=== PATIENT | male | born 1990 | race Two or more races ===

== ENCOUNTER 2020-09-20 13:25 | Emergency (ER) | payer MEDICARE, MEDICAID, SELFPAY ==
--- NOTE | 2020-09-20 14:24 | PC.NURSE ---
PT CALLED BY DANIELEAY X 2. NO ANSWER. NOT IN WR
== END 2020-09-20 18:40 | disposition left against medical advice (07) ==
PROVIDERS: Emergency Provider Emergency Medicine
DX: M79.642 Pain in left hand (principal)
CPT/HCPCS: 99281

== ENCOUNTER 2020-12-11 12:46 | Outpatient (REF) | payer MEDICARE, MEDICAID, SELFPAY | END 2020-12-11 12:47 | disposition home or self-care (01) | LOC: HO.LAB 12:46 | PROVIDERS: Visit Provider Internal Medicine | DX: Z20.822 Contact with and (suspected) exposure to COVID-19 (principal) | CPT/HCPCS: C9803; U0003; U0005 ==

== ENCOUNTER 2022-06-28 13:30 | Emergency (ER) | payer MEDICARE, MEDICAID, SELFPAY ==
[2022-06-28 14:46] VITALS: BP 131/63; PULSE 69; RESP 19; TEMP 36.6; O2SAT 98; BMI 32.5
--- NOTE | 2022-06-28 14:47 | ED.DENTAL ---
HPI - Dental/Oral General Chief complaint: Dental/Oral Stated complaint: tooth ache Time Seen by Provider: 06/28/22 14:51 Source: patient Mode of arrival: ambulatory Limitations: no limitations History of Present Illness HPI Narrative: Patient is a 31-year-old male who presents to emergency department for evaluation of right lower dental pain. Onset of symptom was a few months ago, but has become progressively worse over the past 2 days. Reports that his tooth fractured initially, has not been able to see a dentist for this. Reports that his gums are red, denies any purulent drainage. Denies fevers, chills, drooling, difficulty swallowing, inability to open the mouth, chest pain, shortness of breath.. Teeth map: 1. dental fracture Related Data Previous Rx's Medication Instructions Recorded amoxicillin 875 mg-potassium 1 tab PO Q12H #14 tabs 06/28/22 clavulanate 125 mg tablet ibuprofen 600 mg tablet 600 mg PO Q8H PRN fever or pain 06/28/22 #30 tabs Allergies Allergy/AdvReac Type Severity Reaction Status Date / Time No Known Allergies Allergy Unverified 03/09/20 16:49 [No Known Allergies*] Review of Systems Review of Systems: Constitutional : No Fever, No Chills, No changes in PO intake, No difficulty speaking,? no recent dental procedure, no heat or cold intolerance while eating, no recent face trauma, ENT/Mouth : No swallowing difficulty, no change in voice, No jaw pain, No facial swelling, no drooling, no trismus, no bleeding, no throat swelling, no lacerations, no tongue swelling, positive gum redness, Eyes: No Eye Pain, No periorbital Swelling Cardiovascular : No Chest Pain, No SOB Respiratory : No Cough, No Sputum, No Wheezing, No Smoke Exposure, No Dyspnea Gastrointestinal : No Nausea, No Vomiting, No Diarrhea Genitourinary : No Dysuria Musculoskeletal : No Myalgias Skin : No rash, no facial swelling or redness, Neuro : No Weakness, No Numbness, No Headache Yes all other systems are reviewed and are negative [facility] Past Medical History Attestation statement: The following information was validated with the patient. Source: old records reviewed Social History Social History Advance Directives: No Advance Directives Information Provided: No Physical Exam Vital Signs: Vital Signs: Last Vital Signs Temp 98 F 06/28/22 14:46 Pulse 69 06/28/22 14:46 Resp 19 06/28/22 14:46 BP 131/63 06/28/22 14:46 Pulse Ox 98 06/28/22 14:46 O2 Del Method 06/28/22 14:46 BMI result Body Mass Index 32.5 Appearance: Alert. Oriented X3. No acute distress. Head: Normal external exam. Normocephalic. Atraumatic. Eyes: PERRLA. EOMI. Conjunctiva and sclera normal. Eyelids normal. ENT: EAC normal. TM's Normal. Pharynx normal. Uvula midline. Moist mucous membranes.? ?No trismus noted.? No drooling noted.? No muffled voice noted. Dentition:? Dental fracture to #31 with erythema of the surrounding gingiva. Patient with old fractured teeth.? Gingival within normal limits.? No fluctuance.? Neck: Normal inspection. Neck supple. FROM. No adenopathy. Thyroid Normal. No meningeal signs. No neck mass noted.? Trachea midline. CVS: Normal heart rate and rhythm. Heart sound normal. No murmurs noted. Pulses normal throughout. Respiratory: No respiratory distress. Painless inspiration. Breath sounds normal. No wheezes/rales/rhonchi noted. Chest nontender. ?No accessory muscle usage noted or decreased air movement noted. Back:? Full range of motion noted. Skin: Skin warm and dry.? Normal skin color.? Normal skin turgor. No rashes/lesions/lacerations noted. Extremities: Extremities exhibit normal range of motion.? Extremities nontender. Neuro: Oriented X 3.? No motor deficit.? No sensory deficit.? Reflexes normal. Medical Decision Making Medical Decision Making MDM Narrative: Patient is a 31-year-old male with no reported past medical history who presents to emergency department for evaluation of right lower dental pain. Dental fracture present with erythema of surrounding tissue, and multiple dental carries, malodorous breath. examination not consistent with dental abscess, peritonsilar abscess, Armand angina, salivary duct obstruction. Well appearing, non-toxic, vitals normal, afebrile, no tachycardia. Provided with prescription for antibiotic for early dental infection, tylenol/ibuprofen for pain, advised follow-up with dental provider for persistent symptoms and treatment. Verbalized understanding, discussed worrisome signs and symptoms to return to ED for. Departed in stable condition. Prescription Management I considered prescription management with: Pain Medication and Antibiotic Discharge Plan Discharge Clinical Impression: Dental infection Patient Disposition: Home, Self-Care Additional Instructions: As discussed, a prescription for antibiotic was sent to your pharmacy, please complete this entire course. You can take ibuprofen 200 mg, 3 tablets (600mg) every 6-8 hours as needed for pain, in addition to Tylenol 500 mg, 2 tablets (1,000mg) every 4-6 hours as needed for pain, but not to exceed 3 doses daily (3,000mg).? Please contact a dental provider as you will need further follow-up. Return to emergency department any new or worsening symptoms or concerns. Prescriptions: New amoxicillin-pot clavulanate 875-125 mg tablet 1 tab PO Q12H Qty: 14 0RF ibuprofen 600 mg tablet 600 mg PO Q8H PRN (Reason: fever or pain) Qty: 30 0RF Referrals: Physician,Unknown J [Primary Care Provider] - Stand Alone Forms: Work/School Release Interventions: ED Discharge Assessment Last Done: 06/28/22 14:58 Discharge Date/Time: 06/28/22 14:59
== END 2022-06-28 14:59 | disposition home or self-care (01) ==
LOC: HO.ED 14:58
PROVIDERS: Emergency Provider Emergency Medicine
DX: K04.7 Periapical abscess without sinus (principal); K08.89 Other specified disorders of teeth and supporting structures
CPT/HCPCS: 99282; 99283

== ENCOUNTER → 2022-08-13 08:40 | Outpatient (BNVA) | payer SELFPAY | PROVIDERS: Visit Provider Internal Medicine | DX: Z02.79 Encounter for issue of other medical certificate (principal) ==